=== PATIENT | male | born 1965 | race Hispanic/Latino ===

== ENCOUNTER 2023-11-23 13:05 | Observation (INO) | payer BC ==
[~2023-11-23] VITALS: Ht 167.6 cm; Wt 110.8 kg
[2023-11-23] MEDS ORDERED: SODIUM CHLORIDE 0.9% 1,000 ML IV ONE (13:45)
[2023-11-23] MEDS ORDERED: HYDROmorphone HCL 1 MG/ML SYR IV PRN ×2 (13:45→15:30)
[2023-11-23 13:57] LABS: EOSINOPHILS 0.2 % (0-6); HEMOGLOBIN 12.8 g/dL (12.0-18.0); RDW 13.3 (10.5-15.0)
[2023-11-23 14:06] LABS: BASOPHILS 0.2 % (0-2); HEMATOCRIT 39.8 % (35.0-50.0); LYMPHOCYTES 7.1 % (24-44); MCH 29.1 (27-36); MCHC 32.2 g/dl (30-36); MCV 90.4 fl (81-99); MONOCYTES 7.4 % (0-12); NEUTROPHILS 85.1 % (39-80); PLATELET COUNT 385 K/uL (140-440)
[2023-11-23] MEDS ORDERED: METFORMIN HCL500 M1 PO (14:07)
[2023-11-23 14:14] LABS: ALBUMIN 3.1 g/dL (3.4-5.0); ALBUMIN/GLOBULIN RATIO 0.67 (1.1-2.4); ANION GAP 13.9 (7-21); BILIRUBIN, TOTAL 0.8 ng/dL (0.2-1.0); BUN/CREATININE RATIO 15.55 (6.0-28.6); CALCIUM 8.7 mg/dL (8.5-10.1); CREATININE, SERUM 0.9 mg/dL (0.70-1.30); POTASSIUM 3.9 mmol/L (3.5-5.1); PROTEIN, TOTAL 7.7 g/dL (6.4-8.2)
[2023-11-23] MEDS ORDERED: PIPERACILLIN/TAZOBACTAM 4.5 GM in DEXTROSE 5% 100 ML IV ONE ×2 (14:15→17:45)
[2023-11-23] MEDS ORDERED: FAMOTIDINE 20 MG/ 2 ML VIAL IV ONE (14:15)
[2023-11-23] MEDS ORDERED: ondansetron HCL 4 MG/2 ML VIAL ONE (14:30)
[2023-11-23] MEDS ORDERED: fentaNYL citrate 100 MCG/2 ML VIAL ONE (14:30)
[2023-11-23] MEDS ORDERED: propofoL 200 MG/20 ML VIAL ONE (14:30)
[2023-11-23] MEDS ORDERED: MIDAZOLAM HCL 2 MG/2 ML VIAL ONE (14:30)
[2023-11-23] MEDS ORDERED: LIDOCAINE HCL 2% 5 ML SDV ONE (14:30)
[2023-11-23] MEDS ORDERED: BUPIVACAINE 0.75% IN DEXTROSE 2 ML AMP ONE (14:31)
[2023-11-23] MEDS ORDERED: IBLOOD GLUCOSE TEST STRIP 1 EA TEST VI PRN (15:30)
[2023-11-23] MEDS ORDERED: NALOXONE HCL 0.4 MG SYR IV PRN (15:30)
[2023-11-23] MEDS ORDERED: PROCHLORPERAZINE EDISYLATE 10 MG/2 ML VIAL IV PRN ×2 (15:30→15:45)
[2023-11-23] MEDS ORDERED: droPERidol 5 MG/2 ML VIAL IV PRN (15:30)
[2023-11-23] MEDS ORDERED: fentaNYL citrate 50 MCG/ML SDV IV PRN (15:30)
[2023-11-23] MEDS ORDERED: ondansetron HCL 4 MG/2 ML VIAL IV PRN (15:30)
[2023-11-23] MEDS ORDERED: DEXTROSE 5% - LACTATED RINGERS 1,000 ML IV SCH (15:45)
[2023-11-23] MEDS ORDERED: MORPHINE SULFATE 10 MG/ML VIAL IV PRN (15:45)
[2023-11-23] MEDS ORDERED: KETOROLAC TROMETHAMINE 30 MG/ML VIAL IV PRN (15:45)
[2023-11-23] MEDS ORDERED: DEXTROSE 50% 50 ML SYR IV PRN ×3 (16:00→21:30)
[2023-11-23] MEDS ORDERED: ACETAMINOPHEN 500 MG TAB PO PRN (16:00)
[2023-11-23] MEDS ORDERED: GLUCAGON,HUMAN RECOMBINANT 1 MG/ML VIAL SUB-Q PRN (16:00)
[2023-11-23] MEDS ORDERED: DEXTROSE 5% 1,000 ML IV PRN (16:00)
[2023-11-23] MEDS ORDERED: OXYCODONE/APAP 7.5/325 TAB PO PRN (16:00)
[2023-11-23] MEDS ORDERED: IBLOOD GLUCOSE TEST STRIP 1 EA TEST XX PRN (16:00)
[2023-11-23] MEDS ORDERED: METFORMIN HCL1000 MG PO (16:01)
[2023-11-23 16:09] VITALS: BP 126/73
[2023-11-23] MEDS ORDERED: EZETIMIBE10 MG PO (16:11)
[2023-11-23] MEDS ORDERED: OMEPRAZOLE20 MG PO (16:12)
[2023-11-23] MEDS ORDERED: LISINOPRIL20 MG PO (16:12)
[2023-11-23] MEDS ORDERED: VITAMIN D3125 MC2 PO (16:34)
[2023-11-23] MEDS ORDERED: VITAMIN B-121000 MCG PO (16:35)
[2023-11-23] MEDS ORDERED: metroNIDAZOLE 250 MG TAB PO SCH (17:00)
[2023-11-23 17:42] VITALS: BP 149/79
[2023-11-23 18:50] VITALS: BP 156/69
[2023-11-23 20:03] VITALS: BP 147/67
[2023-11-23] MEDS ORDERED: CIPROFLOXACIN 500 MG TAB PO SCH (21:00)
[2023-11-23] MEDS ORDERED: IBLOOD GLUCOSE TEST STRIP 1 EA TEST VI SCH (21:00)
[2023-11-23] MEDS ORDERED: FAMOTIDINE 20 MG TAB PO SCH (21:00)
[2023-11-23] MEDS ORDERED: HEParin SOD (PORCINE) 5,000 UNIT/0.5 ML SYR SUB-Q SCH (21:00)
[2023-11-23] MEDS ORDERED: Insulin Regular, Human 100 UNIT/ML ML SUB-Q SCH (21:00)
[2023-11-23] MEDS ORDERED: ACETAMINOPHEN 500 MG TAB PO SCH (22:00)
[2023-11-24 02:15] VITALS: BP 115/69
[2023-11-24 05:49] VITALS: BP 144/73
[2023-11-24 05:53] LABS: BASOPHILS 0.3 % (0-2); EOSINOPHILS 1.3 % (0-6); HEMATOCRIT 35.6 % (35.0-50.0); HEMOGLOBIN 12.1 g/dL (12.0-18.0); LYMPHOCYTES 11.7 % (24-44); MCH 30.3 (27-36); MCV 89.2 fl (81-99); MONOCYTES 9.3 % (0-12); NEUTROPHILS 77.4 % (39-80); PLATELET COUNT 333 K/uL (140-440); RBC 3.99 M/ul (4.3-5.7); RDW 13.5 (10.5-15.0)
[2023-11-24] MEDS ORDERED: IBUPROFEN 600 MG TAB PO PRN (09:30)
[2023-11-24 09:36] VITALS: BP 150/78
[2023-11-24 10:33] VITALS: BP 150/78
[2023-11-24] MEDS ORDERED: CIPROFLOXACIN500 MG PO (12:47)
[2023-11-24] MEDS ORDERED: IBUPROFEN600 MG PO (12:47)
[2023-11-24] MEDS ORDERED: METRONIDAZOLE250 MG PO (12:47)
[2023-11-24] MEDS ORDERED: ACETAMINOPHEN500 MG PO (12:47)
[2023-11-24] MEDS ORDERED: OXYCODON-ACETA1 EAC2 PO (12:47)
[2023-11-24] MEDS ORDERED: METAMUCIL FIBE3.4 GM PO (12:49)
[2023-11-24 14:24] VITALS: BP 157/82
[2023-11-24 14:50] VITALS: BP 157/82
--- NOTE | 2023-11-27 13:20 | OR ---
[facility] [address] [place], [place] [address] Signed DATE OF OPERATION: 11/23/2023 SURGEON: Brent Singh MD PREOPERATIVE DIAGNOSES: 1. Left posterior perirectal abscess. 2. Diabetes mellitus. POSTOPERATIVE DIAGNOSIS: Deep and copious left posterolateral perirectal abscess. PROCEDURES: 1. Exam under anesthesia. 2. Incision and drainage of left posterolateral deep perirectal abscess. 3. Placement of knotted quarter-inch Pratima drain and temporary wound packing with quarter-inch NuGauze. ANESTHESIA: Saddle block; Nando Mackenzie CRNA, and local 5 mL of 0.5% Marcaine with epinephrine. INDICATIONS: This 57-year-old man has had four days of increasing perirectal pain on the left side. He does have underlying diabetes. He saw a provider elsewhere yesterday, who noted tenderness and prescribed Motrin. He presented to [facility] ER and evaluated by Dr. Cade Carmen and found to have induration in the left posterolateral perianal area. A CT scan had been considered, but given the clinical findings, quite obviously he does have perirectal abscess, though somewhat subtle in its outward appearance. I have recommended exam under anesthesia, incision and drainage and other indicated procedures. The patient understands as does his and son. The risk of bleeding, infection, possibility of formation of fistula in ANO, and other unforeseen complications related to its treatment and wished to proceed. FINDINGS: A surprisingly copious amount of purulent material was noted. The perirectal abscess extended well into the ischiorectal space and was relatively superficial in relation to the sphincter muscle. The yellow vessel loop would have been the usual drainage approach to assist in drainage; however, in a more appropriate approach in this situation is a knotted quarter-inch [place] drain into the depths of the abscess cavity. It was secured to the skin and quarter-inch Nu-Gauze was applied to allow for hemostasis. He tolerated the procedure well. Electronically Signed By: BRENT SINGH MD 11/27/23 1320 PATIENT NAME: PEREZ MOORE OPERATIVE REPORT DATE OF : 67 REPORT #: [id number] PHYSICIAN: BRENT SINGH MD PCP: NO PRIMARY CARE PHYSICIAN REPORT IS CONFIDENTIAL AND NOT TO BE RELEASED WITHOUT AUTHORIZATION [facility] [address] [place], [place] [address] Signed DESCRIPTION OF PROCEDURE: The patient was brought to the operating room after undergoing upright posterior saddle block. Preoperative antibiotic Unasyn had been given. The patient was placed in the prone drew-knife position and given intravenous sedation. The buttocks were taped apart. The perineum and perirectal area were prepared with a Betadine based solution and draped sterilely. The buttocks had been taped apart for good exposure. Palpation of the left posterolateral aspect demonstrated a firm induration, though it was rather subtle compared to usual. An incision was made with #15 blade, which allowed resultant copious amounts of purulent material to egress from the wound. Interrogation of the site with a hemostat showed a very sizable cavity in the pararectal space extended cephalad, but relatively superficial to all else. An anal retractor had been used to expose the rectum itself and the origin of the abscess appeared to be well above the dentate line proper. After cultures and Gram stain were obtained and all the pus was allowed to egress, the area was then irrigated with sterile saline copiously until clear. Seton proper was deemed unnecessary and possibly mettlesome. A quarter-inch Pratima drain was knotted on the end multiple times and extended into the depths of the wound along the pararectal area. This was secured to the skin with nylon suture. As there was some amount of oozing of blood as would be expected not easily managed by cautery. The cavity was packed relatively loosely to a point of hemostasis with one quarter-inch Nu Gauze. This allowed for good hemostasis. A peripad was applied. He was returned to the supine position and taken to the recovery room in good condition. Blood loss was less than 10 mL. Purulent drainage possibly 100 mL or more. MD EDITH Adorno/MODL /[id number] cc: Cade Carmen MD Electronically Signed By: BRENT SINGH MD 11/27/23 1320 PATIENT NAME: PEREZ MOORE OPERATIVE REPORT DATE OF : 67 REPORT #: [id number] PHYSICIAN: BRENT SINGH MD PCP: NO PRIMARY CARE PHYSICIAN REPORT IS CONFIDENTIAL AND NOT TO BE RELEASED WITHOUT AUTHORIZATION [address] [address] Signed Copies: CADE CARMEN MD ~ Electronically Signed By: BRENT SINGH MD 11/27/23 1320 PATIENT NAME: STEPHANIE MOOREN OPERATIVE REPORT DATE OF : 67 REPORT #: [id number] PHYSICIAN: BRENT SINGH MD PCP: NO PRIMARY CARE PHYSICIAN REPORT IS CONFIDENTIAL AND NOT TO BE RELEASED WITHOUT AUTHORIZATION
--- NOTE | 2023-11-27 13:20 | HP ---
[facility] [address] [place], [place] [address] Signed ADMISSION DATE: 11/23/2023 PROBLEM: Left posterior perianal pain and induration. HISTORY OF PRESENT ILLNESS: This 57-year-old man is accompanied by his and his son. The patient speaks Romanian to a degree and his son is completely fluent. He was seen by a provider elsewhere yesterday with perianal pain on the left posterior aspect which was of uncertain etiology and was recommended to take Motrin. His pain worsened today and he presented to the emergency room where he was evaluated by Dr. Carmen. Dr. Carmen's evaluation showed induration in the left posterior perianal area and consideration was made for a CT scan to be obtained. As I was nearby, consultation was additionally undertaken. The patient has a prior history of diabetes mellitus. He last ate yesterday. He has had no abdominal surgery or perianal surgery. SOCIAL HISTORY: He is . He is accompanied by his and his grown son is with him as well. REVIEW OF SYSTEMS: He has had no fever, chills, shortness of breath or other problem. He has had only perianal pain on the left posterior aspect. PHYSICAL EXAMINATION: GENERAL: This is an obese man who does not look systemically toxic at this time. An IV is infusing through the right antecubital area and another IV is being established. HEENT: Mucous membranes are reasonably moist. CHEST: Shows normal respiratory excursion. Pulse is regular. ABDOMEN: Quite obese and soft. In the lateral decubitus position left side down, the perianal area was examined. There is induration and marked tenderness in the left posterior perianal area highly consistent with perirectal abscess. There is no sign of spontaneous necessitation. EXTREMITIES: Show no clubbing, cyanosis, or edema. ASSESSMENT: The patient almost certainly has a left posterior perirectal abscess for which incision and drainage would be appropriate. Explained to the patient with the assistance of his son and so forth and recommended treatment to undergo anesthesia with incision and Electronically Signed By: BRENT SINGH MD 11/27/23 1320 PATIENT NAME: PEREZ MOORE HISTORY AND PHYSICAL DATE OF : 67 REPORT #: [id number] PHYSICIAN: BRENT SINGH MD PCP: NO PRIMARY CARE PHYSICIAN REPORT IS CONFIDENTIAL AND NOT TO BE RELEASED WITHOUT AUTHORIZATION [facility] [address] [place] [id number] Signed drainage of the site, probable placement of yellow vessel loop seton type drain. The risk of bleeding, infection, need for additional treatment, misdiagnosis, and failure of diagnosis was all reviewed. They understand and wished to proceed. PLAN: We will proceed with operative intervention as soon as possible. I do not believe he will need a CT scan given the clinical findings at this time. MD EDITH Adorno/GLORIA /[id number] cc: Cade Carmen MD Copies: CADE CARMEN MD ~ Electronically Signed By: BRENT SINGH MD 11/27/23 1320 PATIENT NAME: STEPHANIE MOOREN HISTORY AND PHYSICAL DATE OF : 67 REPORT #: [id number] PHYSICIAN: BRENT SINGH MD PCP: NO PRIMARY CARE PHYSICIAN REPORT IS CONFIDENTIAL AND NOT TO BE RELEASED WITHOUT AUTHORIZATION
== END 2023-11-24 14:40 | disposition home or self-care (01) ==
LOC: ED 13:05 → MS 13:07
PROVIDERS: Emergency Medicine; ADMIT Surgery; ATTEND Surgery
PROC: 0D9P00Z Drainage of Rectum with Drainage Device, Open Approach (ICD-10-PCS; principal; 2023-11-23 15:00)
DX: K61.1 Rectal abscess (principal); E11.9 Type 2 diabetes mellitus without complications; E66.9 Obesity, unspecified; Z79.84 Long term (current) use of oral hypoglycemic drugs
CPT/HCPCS: 00902; 36415; 80053; 85025; 87205; 96374; 99284; A9270; J1170; J1644; J1815; J2001; J2250; J2405; J2543; J2704; J3010; J7030; J7121

== ENCOUNTER 2024-06-06 06:01 | Day surgery (SDC) | payer BC ==
[2024-06-01 08:19] VITALS: BP 149/79
[~2024-06-06] VITALS: Ht 167.6 cm; Wt 110.0 kg
[~2024-06-06 06:01] MED LIST: ACETAMINOPHEN500 MG PO; CIPROFLOXACIN500 MG PO; EZETIMIBE10 MG PO; IBUPROFEN600 MG PO; LACTATED RINGER'S 1,000 ML IV SCH; LISINOPRIL20 MG PO; METAMUCIL FIBE3.4 GM PO; METFORMIN HCL1000 MG PO; METFORMIN HCL500 M1 PO; METRONIDAZOLE250 MG PO; OMEPRAZOLE20 MG PO; OXYCODON-ACETA1 EAC2 PO; VITAMIN B-121000 MCG PO; VITAMIN D3125 MC2 PO
[2024-06-06 06:07] VITALS: BP 168/78
[2024-06-06] MEDS ORDERED: NEOMYCIN SULFA500 MG PO (06:22)
[2024-06-06] MEDS ORDERED: GEL LUBRICATING MULTI-INGRED LARGE TUBE ONE (06:51)
[2024-06-06] MEDS ORDERED: HEParin SOD (PORCINE) 5,000 UNIT/ML SDV SUB-Q SCH (07:00)
[2024-06-06] MEDS ORDERED: CEFAZOLIN SODIUM 2 GM/20 ML SYR IV SCH (07:00)
[2024-06-06] MEDS ORDERED: LIDOCAINE HCL 1% 5 ML SDV INJ ONE (07:00)
[2024-06-06] MEDS ORDERED: IBLOOD GLUCOSE TEST STRIP 1 EA TEST VI PRN (07:00)
[2024-06-06] MEDS ORDERED: metroNIDAZOLE/SODIUM CHLORIDE 500 MG/100 ML PIGGYBACK IV SCH (07:00)
[2024-06-06] MEDS ORDERED: propofoL 200 MG/20 ML VIAL ONE (07:09)
[2024-06-06] MEDS ORDERED: MIDAZOLAM HCL 2 MG/2 ML VIAL ONE (07:09)
[2024-06-06] MEDS ORDERED: LIDOCAINE HCL 2% 5 ML SDV ONE (07:09)
[2024-06-06] MEDS ORDERED: ondansetron HCL 4 MG/2 ML VIAL ONE (07:23)
[2024-06-06] MEDS ORDERED: fentaNYL citrate 100 MCG/2 ML VIAL ONE (07:27)
[2024-06-06] MEDS ORDERED: SUGAMMADEX SODIUM 200 MG/2 ML ML ONE (07:27)
[2024-06-06] MEDS ORDERED: ROCURONIUM BROMIDE 50 MG/5 ML SYR ONE (07:27)
[2024-06-06] MEDS ORDERED: NALOXONE HCL 0.4 MG SYR IV PRN (09:00)
[2024-06-06] MEDS ORDERED: LACTATED RINGER'S 1,000 ML IV SCH (09:00)
[2024-06-06] MEDS ORDERED: OXYCODONE/APAP 7.5/325 TAB PO PRN (09:00)
[2024-06-06] MEDS ORDERED: IBUPROFEN 600 MG TAB PO PRN (09:00)
[2024-06-06] MEDS ORDERED: PSYLLIUM SEED 1 PKT PACKET PO SCH (09:00)
[2024-06-06] MEDS ORDERED: ACETAMINOPHEN 500 MG TAB PO PRN (09:00)
[2024-06-06] MEDS ORDERED: PERCOCET 7.5-31 EACH PO (09:02)
[2024-06-06] MEDS ORDERED: MOTRIN IB200 MG PO (09:02)
[2024-06-06] MEDS ORDERED: TYLENOL EXTRA500 MG PO (09:02)
[2024-06-06] MEDS ORDERED: METAMUCIL FIBE3.4 GM PO (09:03)
--- NOTE | 2024-06-06 09:10 | NUR ---
06/06/24 0910 Evelyn Cabezas 0838 PT ARRIVED IN PACU NON RESPONSIVE TO NOXIOUS STIMULI WITH OPA IN PLACE. 0841 BLOOD SUGAR 162. ANESTHESIA AWARE. 0850 PT REACTIVE. OPA REMOVED. 0900 PT AWAKE AND TALKING TO STAFF. NO C/O'S. 0905 DR AT BEDSIDE. ALLL QUESTIONS ANSWERED.
[2024-06-06 09:23] VITALS: BP 135/73
--- NOTE | 2024-06-06 09:33 | NUR ---
0920 PT ARRIVED TO DAY SURGERY VIA STREACHER FROM PACU. PT DROWSEY BUT ORIENTED. PT REPORTS TOLERABLE 6/10 PAIN, PT DOES NOT WANT PAIN MEDICATIONS AT THIS TIME. SURGICAL DRESSING CDI. PT BREATHING EQUAL AND UNLABORED. PT SITTING UP IN BED. VITALS TAKEN. IV ASSESSED. 0930 PT SITTING UP IN BED DRINKING WATER, PT HAS CALL LIGHT AND SNACKS AT BEDSIDE. PT AT BEDSIDE.
--- NOTE | 2024-06-06 10:06 | NUR ---
1000 PT STATES PAIN IS 6/10 BUT WOULD LIKE SOMETHING FOR THE PAIN. PAIN MEDICATION GIVEN PER EMAR.
[2024-06-06 10:19] VITALS: BP 131/77
[2024-06-06] MEDS ORDERED: SEVOFLURANE 250 ML BTL INH ONE (10:30)
--- NOTE | 2024-06-06 10:34 | NUR ---
LE 1019 HOURLY ROUNDING DONE WITH PT. PAIN IS DOWN TO A 4/10, WHICH IS TOLERABLE FOR PT. PT STATES HE FEELS A SMALL URGE TO PEE BUT WILL WAIT UNTIL HE REALLY FEELS LIKE HE HAS TO PEE. PT HAS CALL LIGHT Chroma REACH. PT'S IS IN ROOM WITH PT. VITALS TAKEN, IV ASSESSED. PT HAS TOLERATED PO FLUIDS AND SNACKS.
--- NOTE | 2024-06-06 12:07 | NUR ---
1057 PT AMBULATED TO BATHROOM AND VOIDED 675 OF CLEAR YELLOW URINE. 1105 DISCHARGE INFORMTATION GONE OVER WITH PT AND . NO QUESTIONS AT THIS TIME. IV DISCONTINUED. 1115 PT DISCHARGED FROM DAY SURGERY VIA WHEELCHAIR TO THE FRONT OF THE HOSPITAL TO PT'S SON'S CAR.
--- NOTE | 2024-06-08 13:15 | OR ---
[facility] [address] [place], [place] [address] Signed DATE OF OPERATION: 06/06/2024 SURGEON: Brent Singh MD PREOPERATIVE DIAGNOSIS: Episodic dqlsavj-[id number], left posterior or lateral aspect. POSTOPERATIVE DIAGNOSIS: Left posterior uyythtx-jq-KXN, lower one-third of sphincter complex. PROCEDURES: 1. Exam under anesthesia. 2. Anal dilatation (three finger). 3. Probe and passage of left posterior fybwwqe-gl-ZCA with insertion of yellow vessel loop. 4. Left posterolateral anal fistulotomy. ANESTHESIA: General endotracheal, Nando Mackenzie CRNA and local 10 mL of 0.25% Marcaine with epinephrine. INDICATION: This 58-year-old man presented to the emergency room last summer and was noted to have a left perirectal abscess and underwent exam under anesthesia with incision and drainage on November 23, 2023. He lives in [place], [place]. It was unclear if the abscess was an ischiorectal abscess or a more complex abscess. However, drainage was undertaken and placement of a quarter-inch Pratima drain with a knotted end allowed for continued drainage. He had the drain removed by me in the office on December 09, 2023. Over time, he developed episodic perirectal pain and spontaneous necessitation quite indicative of a hrvhhzy-hk-XHC. Evaluation in the office setting on April 17, 2024, showed an area of excoriation on the left side dominantly in the posterior aspect, but possibly lateral. He showed no sign of local cellulitis or other problem. On the basis of those findings, he is quite likely to have a pqcjeno-qz-LYQ, which would be typical of at least 10% of patients with perirectal abscess. I have recommended exam under anesthesia, placement of seton and definition of the depth and length of the fistula with possible fistulotomy versus seton drainage and staged repair or even possibly more complex management including the rectal advancement flap if Electronically Signed By: BRENT SINGH MD 06/08/24 1315 PATIENT NAME: PEREZ MOORE OPERATIVE REPORT DATE OF : 67 REPORT #: [id number] PHYSICIAN: BRENT SINGH MD PCP: TASHA MARTIN PA-C REPORT IS CONFIDENTIAL AND NOT TO BE RELEASED WITHOUT AUTHORIZATION [facility] [address] [place], [place] [address] Signed the entry point of the fistula is high in the rectum. The patient, his and son who speaks Scottish well all understand what I have recommended and the associated risks, which include but are not limited to bleeding, infection, recurrent disease, and variable degrees of incontinence. Understanding all this, he wishes to proceed. FINDINGS: Anal derm appeared essentially normal at first examination. Ultimately found, however, was a fistula which was in the posterior left lateral area and was easily identified with a metallic probe and as would be expected followed Goodsall's rule entering the anal canal just above the dentate line most dominantly in the midline. The fistulous tract appeared to be unifocal and was better identified and elevated with a yellow vessel loop seton. The extent of internal sphincter involved was far less than one-third the length of the lowest part of the anorectum and on that basis. Division of the fistulous tract was able to be undertaken with low risk of significant level of incontinence. The fistulous tract was well formed, had granulation tissue and so forth. He tolerated the procedure well. DESCRIPTION OF PROCEDURE: The patient was brought to the operating room, given a general endotracheal anesthetic. Preoperative antibiotic Ancef and Flagyl had been given. After satisfactory general endotracheal anesthesia, he was placed in a prone drew-knife position. Buttocks were taped apart. Initial examination showed no evidence of skin abnormality on the left or right side. Preparation with a Betadine based solution had been undertaken. A three finger anal dilatation was undertaken allowing for application of an anal retractors. Internal inspection showed no sign of inflammatory bowel disease or other similar finding. Gentle examination on the left lateral perianal area was undertaken showing an area likely corresponding to a oibzykv-pp-MQK though epithelialized at this time. It was gently probed with a blunt lacrimal duct probe like anal probe and quite clearly identified as the fistula in question. He was gently followed with the metallic probe curving toward the midline as would be expected following Goodsall's rule. Special care was taken to avoid formation of false passage. Ultimately, it was found to be directed to the midline just above the dentate line as might be expected. The probe passed through this area fully. It was placed in a curved position and a yellow vessel loop inserted through the slotted end of the probe and drawn through the anal canal and withdrawn fully. The extent of the fistulous tract was identified and considered far less than one-third the length of the distal anal rectal area. I had initially thought and particularly would advocate if it were much higher to place a seton and do staged repair. However, under the circumstances of its relatively shallow nature division of the tissue was Electronically Signed By: BRENT SINGH MD 06/08/24 1315 PATIENT NAME: PEREZ MOORE OPERATIVE REPORT DATE OF : 67 REPORT #: [id number] PHYSICIAN: BRENT SINGH MD PCP: TASHA MARTIN PA-C REPORT IS CONFIDENTIAL AND NOT TO BE RELEASED WITHOUT AUTHORIZATION [facility] [address] [place] [address] Signed undertaken with needlepoint electrocautery under direct visualization, providing good hemostasis. The tissue divided included the anoderm, some external skin. The internal sphincter in the inferior aspect and a minimal amount of external sphincter. This site was secured for hemostasis with electrocautery. A 10 mL of 0.25% Marcaine with epinephrine was injected locally. Photographs were taken throughout the procedure. A Gel-Foam with bacitracin was inserted into the canal as was a peripad. He was ultimately returned to the supine position, extubated, and transferred to recovery room in good condition having suffered no complication. Sponge, needle, and instrument counts reported as correct x3. MD EDITH Adorno/BRITNIL /[id number] cc: DIVYA Patel [place] Connor LaBella, PA-C Copies: ~ Electronically Signed By: BRENT SINGH MD 06/08/24 1315 PATIENT NAME: PEREZ MOORE OPERATIVE REPORT DATE OF : 67 REPORT #: [id number] PHYSICIAN: BRENT SINGH MD PCP: TASHA MARTIN PA-C REPORT IS CONFIDENTIAL AND NOT TO BE RELEASED WITHOUT AUTHORIZATION
== END 2024-06-06 11:15 | disposition home or self-care (01) ==
LOC: DS 06:01
PROVIDERS: ATTEND Surgery
PROC: 0D9Q0ZZ Drainage of Anus, Open Approach (ICD-10-PCS; principal; 2024-06-06 07:30)
DX: K60.52 Anorectal fistula, complex (principal); I10 Essential (primary) hypertension; K21.9 Gastro-esophageal reflux disease without esophagitis; Z79.899 Other long term (current) drug therapy; Z79.84 Long term (current) use of oral hypoglycemic drugs
CPT/HCPCS: 00902; J0690; J1644; J2003; J2250; J2405; J2704; J3010; J3490; J7121